=== PATIENT | female | born 1960 | race Caucasian/White ===

== ENCOUNTER 2017-10-20 16:48 | Emergency (ER) | payer OTHER ==
[~2017-10-20] VITALS: Ht 157.5 cm; Wt 70.0 kg
[~2017-10-20 16:48] MED LIST: THYROID MED
[2017-10-20 16:51] VITALS: Ht 157.5 cm; Wt 70.0 kg
--- NOTE | 2017-10-20 17:31 | ERD ---
ER Documentation Chief Complaint Chief Complaint COUGH, FEVER, BODY ACHES X 4 DAYS HPI 57-year-old female who presents emergency department for productive cough, fever , generalized body aches for 4 days. Stated that she has chest pressure/ discomfort whenever she coughs. Denies dizziness, head injury, headache, neck stiffness, difficulty swallowing, loss of appetite, difficulty breathing when lying flat, abdominal pain, nausea, vomiting, constipation, diarrhea, urinary symptoms, loss of bowel bladder control, or possibility being , recent long travel, recent exposure to any illness, recent antibiotic use in the last 3 months, chills, seizures, leg pain, trauma, injury, falls, difficulty walking. Past medical history of hyperthyroidism. Takes [place] thyroid medication at home. ROS All systems reviewed and are negative except as per history of present illness. Medications Home Meds Reported Medications [Thyroid Med] No Conflict Check 02/12/12 Allergies Allergies: Coded Allergies: No Known Allergy (Unverified , 02/12/12) PMhx/Soc History of Surgery: Yes (FIBROID REMOVAL) Anesthesia Reaction: No Hx Alcohol Use: No Hx Substance Use: No Hx Tobacco Use: No Physical Exam Vitals Vital Signs Date Time Temp Pulse Resp B/P Pulse Ox O2 Delivery O2 Flow Rate FiO2 10/20/17 16:51 98.1 84 18 156/81 99 Physical Exam Const: Awake. Not toxic or septic appearing. Head: Atraumatic Eyes: Normal Conjunctiva ENT: Normal External Ears, Nose and Mouth. Left ear: TM is not erythematous. No bleeding. No discharge. Right ear: TM mildly erythematous. No bleeding. No discharge. Throat: Uvula is in midline and not displaced. Tonsils are +2 bilaterally with mild redness but no exudates. Tolerating secretions. Patent airway. Speaks full and clear sentences. Neck: Full range of motion..~ No meningismus. No neck stiffness. No signs of meningeal irritation. Resp: Respirations even and unlabored. Clear to auscultation bilaterally Cardio: Regular rate and rhythm, no murmurs Abd: Soft, non tender, non distended. Normal bowel sounds. There is no right upper/right lower/epigastric/left upper/left lower abdominal tenderness and likely palpation. Back: No midline or flank tenderness Ext: No cyanosis, or edema Neur: Awake and alert. No neurological deficits. Psych: Normal Mood and Affect Procedures/MDM EKG: Normal sinus rhythm with ventricular rate of 80 bpm. No STEMI. Read by supervising emergency room physician. Chest x-ray: No active disease. Influenza A and B: Negative. Differential diagnosis: I have low suspicion for sepsis, serious or severe bacterial infection, acute myocardial infarction, pulmonary embolism, pneumonia given that her vital signs are unremarkable, EKG is unremarkable, chest x-ray showed no infiltrates or any acute abnormality. Final diagnosis: Bronchitis. Prescription: Azithromycin. Pro-air. Tessalon Perles. Follow-up with PCP in the next 3-4 days. Come back here in the emergency department for any new symptoms or any worsening symptoms. All questions and concerns are answered. Patient and family member verbalized understanding and agreed with the plan of care. Hemodynamically stable on discharge. Departure Diagnosis: Primary Impression: Acute bronchitis Condition: Stable Additional Instructions: Follow-up with PCP in the next 3-4 days. Come back here in the emergency department for any new symptoms or any worsening symptoms. All questions and concerns are answered. Patient and family member verbalized understanding and agreed with the plan of care. EMANI VICTORIA Oct 20, 2017 17:31
--- NOTE | 2017-10-20 18:22 | RADRPT ---
PROCEDURE: XR Chest. CLINICAL INDICATION: Cough and fever. TECHNIQUE: Single frontal chest x-ray. COMPARISON: None. FINDINGS: The cardiomediastinal silhouette is unremarkable. There is no congestive heart failure.. No focal i nfiltrate is seen. There is no pleural effusion. There is no pneumothorax. The osseous structures are unremarkable. IMPRESSION: 1. No active disease. RPTAT: [facility]K .Tavo Zimmer MD, MD Date Time Electronically viewed and signed by .Tavo Zimmer MD, MD on 10/20/2017 18:22 .K/
[2017-10-20] MEDS ORDERED: AZIT250T94 PO (18:39)
[2017-10-20] MEDS ORDERED: ALBU8.5H3 INH (18:40)
[2017-10-20] MEDS ORDERED: BENZ100C70 PO (18:40)
[2017-10-20 19:00] VITALS: BP 148/80; PULSE 62; RESP 18; TEMP 98.1
== END 2017-10-20 19:00 | disposition home or self-care (01) ==
LOC: FTE 16:48
DX: J20.9 Acute bronchitis, unspecified (principal); R07.9 Chest pain, unspecified
CPT/HCPCS: 71020; 87400; 93005; Z7502